=== PATIENT | male | born 1955 | race Caucasian/White ===

== ENCOUNTER → 2019-05-14 | Outpatient (CLI) | payer BC | LOC: LABWHC1 08:40 | PROVIDERS: ATTEND Urology | DX: R97.20 Elevated prostate specific antigen [PSA] (principal) | CPT/HCPCS: 36415; 84153; 84154 ==

== ENCOUNTER → 2019-08-15 | Outpatient (CLI) | payer BC ==
--- NOTE | 2019-08-15 16:19 | CT ---
EXAMINATION TYPE: CT urogram wo/w con DATE OF EXAM: 08/15/2019 COMPARISON: CT abdomen pelvis 10/11/2013 HISTORY: Hematuria. CT DLP: 1792 mGycm Automated exposure control for dose reduction was used. CONTRAST: Performed without and with IV Contrast, patient injected with 100ml mL of Isovue 300. Three-D reconstructed images performed separately by the technologist on a separate computer are pres ented through the kidneys ureter and bladder. FINDINGS: Limited CT sections are obtained the lung bases which are clear CT ABDOMEN: Liver spleen adrenal glands and pancreas appear normal. Gallbladder is unremarkable. Kidn eys in the early phase appear normal without masses or cysts. Extrarenal pelves are present bilateral ly. No hydroureter is evident Vascular calcifications within the aorta. Inferior vena cava is normal. Loops of bowel without contra st appear within normal limits. Multiphase imaging is performed through the kidneys and 3-D reconstruction images obtained. Ureters f ollow a normal caliber course and contour to the urinary bladder. Urinary bladder fills normally with out intraluminal abnormality. Prostate is somewhat prominent. Renal calyces. Appear normal. No intraluminal filling defects are evident. IMPRESSION: 1. NO SUSPICIOUS ABNORMALITY TO ACCOUNT FOR HEMATURIA ON THREE-D UROGRAM.
== END | disposition home or self-care (01) ==
LOC: RADCTMAIN 12:54
PROVIDERS: ATTEND Urology
DX: R31.0 Gross hematuria (principal)
CPT/HCPCS: 36415; 74178; 74400; 82565; 84520

== ENCOUNTER 2021-06-18 09:02 | Day surgery (SDC) | payer BC ==
[2021-06-16 15:16] VITALS: BMI 27.3
[~2021-06-18 09:02] MED LIST: LACTATED RINGERS 1,000 ML IV SCH
[2021-06-18] MEDS ORDERED: LIDOCAINE 1% (10MG/ML) FOR IV START INTRADERMA ONE (09:35)
[2021-06-18 09:39] VITALS: RESP 16; TEMP 97.3
[2021-06-18] MEDS ORDERED: PROPOFOL 10 MG/ML 20 ML VIAL IV ONE (10:00)
[2021-06-18] MEDS ORDERED: LIDOCAINE 1% INJ 10MG/ML (20 ML MDV) ONE (10:00)
--- NOTE | 2021-06-18 10:04 | P.HPIHPCON ---
History of Present Illness H&P Date: 06/18/21 66-year-old male presents today for upper endoscopy. He has had recent episodes of dysphagia with occasional food getting stuck 'once in a while.' He believes that it is because he is not chewing well with dentures. He denies any pain. Consent for Procedure: I have explained the operation/procedure to the patient, including the risks, benefits, side effects, alternative therapies (including not receiving the proposed treatment or service), the likelihood of the patient achieving his/her goals, and potential recuperation problems for the procedure/sedation/analgesia, as well as any blood products, if indicated. I also explained to the patient the risks, benefits and side effects of the alternatives, as well as the risks related to not receiving the proposed procedure, care, treatment, or services. - Review of Systems All systems: negative Past Medical History Past Medical History: Hyperlipidemia, Hypertension, Prostate Disorder Additional Past Medical History / Comment(s): FOOD GETS STUCK IN THROAT AT TIMES History of Any Multi-Drug Resistant Organisms: None Reported Past Surgical History: Orthopedic Surgery Additional Past Surgical History / Comment(s): colonoscopy. RT ROTATOR CUFF REPAIR. RT CARPAL TUNNEL RELEASE. SURGERY FOR GLAUCOMA BILAT EYES Past Anesthesia/Blood Transfusion Reactions: No Reported Reaction Smoking Status: Former smoker - Past Family History Mother Family Medical History: No Reported History Medications and Allergies Home Medications Medication Instructions Recorded Confirmed Type Finasteride [Proscar] 5 mg PO DAILY 06/16/21 06/16/21 History amLODIPine BESYLATE/BENAZEPRIL 1 each PO DAILY 06/16/21 06/16/21 History [amLODIPine BESYLATE/BENAZEPRIL 5-20 mg] Allergies Allergy/AdvReac Type Severity Reaction Status Date / Time No Known Allergies Allergy Verified 06/18/21 09:24 Surgical - Exam Osteopathic Statement: *. No significant issues noted on an osteopathic structural exam other than those noted in the History and Physical/Consult. Vital Signs Temp Pulse Resp BP Pulse Ox 97.3 F L 65 16 149/73 96 06/18/21 09:35 06/18/21 09:35 06/18/21 09:35 06/18/21 09:35 06/18/21 09:35 - General well nourished, no distress - Eyes normal ocular movement - ENT normal mucosa - Neck trachea midline - Respiratory normal respiratory effort - Abdomen Abdomen: soft, non tender Assessment and Plan Plan: 66-year-old male with dysphagia. Plan is for upper endoscopy. Risks, benefits and alternatives were provided. Further recommendations after procedure.
--- NOTE | 2021-06-18 10:13 | P.PCN ---
Date of Procedure: 06/18/21 Preoperative Diagnosis: Dysphagia Postoperative Diagnosis: Gastritis Duodenitis Procedure(s) Performed: EGD with biopsy Anesthesia: ALONDRA Surgeon: Clarisse Barber Pathology: other (Biopsies of antrum, duodenum, esophagus) Condition: stable Disposition: same day Indications for Procedure: 66-year-old male presented today for upper endoscopy secondary to recent episodes of dysphagia. Risks, benefits and alternatives were provided. Further recommendations after procedure. Operative Findings: Gastritis Duodenitis Normal esophagus Description of Procedure: The patient was brought to the endoscopy suite and placed in left lateral decubitus position and adequate sedation was achieved using conscious sedation. A bite block was placed and endoscope was placed in the oropharynx and advanced under endoscopic visualization. The endoscope was advanced through the esophagus into the stomach, through the gastric antrum and into the pylorus. The third portion of duodenum was visualized. The endoscope was then slowly withdrawn. The first portion of the duodenum was noted to have inflammatory changes. Biopsies were taken. The antrum was noted for changes. Biopsies were taken. The gastric body distended normally and the gastric folds appeared normal and flattened with insufflation. A retroflexed view of the fundus and GE junction revealed no significant hiatal hernia. The esophagus appeared endoscopically normal. Biopsies were taken of the distal esophagus. There was no evidence of any stricturing throughout the esophagus and the scope easily passed through. Excess air was removed and the scope was withdrawn and the procedure was completed. The patient was then sent to PACU in stable condition.
[2021-06-18 10:51] VITALS: BP 147/78; PULSE 60
== END 2021-06-18 11:10 | disposition home or self-care (01) ==
LOC: ORWHC2ENDO 09:02
PROVIDERS: ATTEND Surgery
DX: R13.10 Dysphagia, unspecified (principal); K29.80 Duodenitis without bleeding; K20.90 Esophagitis, unspecified without bleeding; K29.70 Gastritis, unspecified, without bleeding; I10 Essential (primary) hypertension; E78.5 Hyperlipidemia, unspecified; N40.0 Benign prostatic hyperplasia without lower urinary tract symptoms; Z87.891 Personal history of nicotine dependence; M19.90 Unspecified osteoarthritis, unspecified site; Z97.2 Presence of dental prosthetic device (complete) (partial); Z98.890 Other specified postprocedural states; Z79.899 Other long term (current) drug therapy
CPT/HCPCS: 88305; 43239; J2001; J2704